=== PATIENT | male | born 1985 | race Caucasian/White ===

== ENCOUNTER 2018-03-28 20:12 | Emergency (ER) | payer OTHER ==
[2018-03-28 20:19] VITALS: BP 145/108
--- NOTE | 2018-03-28 22:18 | EDPHY ---
H & P Time Seen by Provider: 03/28/18 20:48 HPI/ROS: HPI Dental pain. 32-year-old male by private vehicle. He reports onset of a toothache, right side, lower 1st molar. He chip this tooth about a year ago. He denies any acute dental trauma. He states that it started bothering him earlier this morning and has been persistent throughout the day. No facial swelling. No fever. ROS: Constitutional: No fever, no chills. No weakness. Eyes: No discharge. No changes in vision. ENT: No sore throat. No nasal congestion or rhinorrhea. As above. Musculoskeletal: No neck pain. Skin: No rashes. Neurological: No headache. Past medical history: Inguinal hernia repair 2006. Social history: Nonsmoker. No alcohol. Here by himself. Physical Exam: General Appearance: Alert, no distress. This patient is responding to questions appropriately and in full sentences. This patient appears well- hydrated and well-nourished. Eyes: Pupils equal and round no pallor or injection. No lid edema, erythema or injection. ENT, Mouth: Mucous membranes are moist. No elevation of the tongue. The pharyngeal tissues are unremarkable. No edema or swelling. No asymmetry suggestive of abscess. No erythema or exudates. Dentition is intact except for a right lower 1st molar which has the posterior aspect of it chipped off. This is an old injury. No evidence of dry socket. There is no significant wellington gingival swelling. No swelling of the buccal mucosa. No facial swelling. No purulent drainage. Neurological: Motor sensory function is grossly intact. Cranial nerves are normal. Gait is normal. Skin: Warm and dry, no rashes. Musculoskeletal: Neck is supple and nontender. No cervical, submental, submandibular lymphadenopathy. Extremities are symmetrical. All joints range without pain or impingement. Psychiatric: No agitation. No depression. Database: EKG: Imaging: Procedures: Inferior alveolar nerve block: Landmarks identified, patient given 2 cc of 0.5 % bupivacaine without epinephrine. Excellent localized anesthesia of the right inferior alveolar nerve obtained. No complications. Procedure performed by myself. Emergency department course: Triage vital signs reviewed. He is moderately hypertensive. Vital signs are otherwise normal. No evidence of facial cellulitis. Patient had good relief of his dental pain with inferior alveolar nerve block as noted above. He was re -evaluated at 10:15 p.m.. He feels comfortable going home and I feel he is safe for discharge. He will see his dentist tomorrow. Ibuprofen dosing discussed. Return to emergency department precautions reviewed. All of his kids his questions were answered. He is discharged from the emergency department in good condition. Differential Diagnosis: The differential diagnosis on this patient includes but is not limited to toothache. Dry socket, acute dental trauma, facial cellulitis unlikely. This represents a partial list of diagnoses considered. These considerations are based on history, physical exam, past history, reassessment and diagnostic testing. Smoking Status: Never smoked Constitutional: Initial Vital Signs Temperature (C) 36.4 C 03/28/18 20:17 Heart Rate 88 03/28/18 20:17 Respiratory Rate 16 03/28/18 20:17 Blood Pressure 145/108 H 03/28/18 20:17 O2 Sat (%) 100 03/28/18 20:17 O2 Delivery Mode Room Air Allergies/Adverse Reactions: Penicillins Allergy (Verified 03/28/18 20:17) Home Medications: Medication Instructions Recorded NK [No Known Home Meds] 03/28/18 Departure - Departure Disposition: Home, Routine, Self-Care Clinical Impression: Pain, dental Condition: Good Instructions: Toothache (ED) Additional Instructions: Read and follow provided instructions. Follow-up with your your dentist tomorrow as discussed for re-evaluation and further management of your toothache. Ibuprofen dosin mg every 6 hours with meals for the next 3 days only. Take only as needed for pain. Return to the emergency department for worsening pain, facial swelling, fever or other serious concerns. Referrals: [facility] [Outside] - As per Instructions
== END 2018-03-28 22:27 | disposition home or self-care (01) ==
PROC: 3E0X3BZ Introduction of Anesthetic Agent into Cranial Nerves, Percutaneous Approach (ICD-10-PCS; principal; 2018-03-28)
DX: K08.89 Other specified disorders of teeth and supporting structures (principal)